=== PATIENT | female | born 1985 | race Caucasian/White ===

== ENCOUNTER 2016-11-14 17:42 | Emergency (ER) | payer BC ==
[~2016-11-14] VITALS: Ht 152.4 cm; Wt 50.0 kg
[2016-11-14 17:46] VITALS: Ht 152.4 cm; Wt 50.0 kg
[2016-11-14] MEDS ORDERED: LIDOCAINE/MYLANTA 40 ML BTL PO ONE (19:30)
[2016-11-14] MEDS ORDERED: FAMOTIDINE 20 MG TAB PO ONE (19:30)
--- NOTE | 2016-11-14 19:31 | ERD ---
ER Documentation Chief Complaint Date/Time DATE: 11/14/16 TIME: 19:22 Chief Complaint CWP X 1 WEEK HPI Patient is a 31-year-old female who presents to the ED with chest wall pain for 1 week and burning sensation in her left chest for 3 days. She states that she does have a history of anxiety and states that she has developed this chest wall pain in the past and associated with her anxiety. She states that the pain came on suddenly 1 week ago when she was sitting watching TV. She states that the pain is constant and is not alleviated with certain activity. Denies exertional pain. She states that it is not exacerbated with activity. She says the pain is on her left chest and does not radiate. She denies nausea, vomiting , diarrhea, abdominal pain. Denies leg pain or swelling. Denies chest pain, shortness of breath or difficulty breathing. Denies headache or dizziness, neck pain or stiffness. She states that she does have a lot of burping and has had acid reflux in the past. Denies a history of cardiac conditions in her family. Denies sudden cardiac in family. ROS All systems reviewed and are negative except as per history of present illness. Medications Home Meds Active Scripts Naproxen* (Naprosyn*) 500 Mg Tablet, 500 MG PO BID Y for PAIN AND/OR INFLAMMATION, #30 TAB Prov:LV VALENCIA PA-C 11/14/16 Allergies Allergies: Coded Allergies: No Known Allergy (Unverified , 11/30/13) PMhx/Soc History of Surgery: No Anesthesia Reaction: No Hx Neurological Disorder: No Hx Respiratory Disorders: No Hx Cardiac Disorders: No Hx Psychiatric Problems: No Hx Miscellaneous Medical Probl: No Hx Alcohol Use: No Hx Substance Use: No Hx Tobacco Use: No Smoking Status: Never smoker Physical Exam Vitals Vital Signs Date Time Temp Pulse Resp B/P Pulse Ox O2 Delivery O2 Flow Rate FiO2 11/14/16 17:46 98.1 78 20 119/73 99 Physical Exam GENERAL: Well-developed, well-nourished female. Appears in no acute distress. HEAD: Normocephalic, atraumatic. EYES: Pupils are equally reactive bilaterally. EOMs grossly intact. No conjunctival erythema. ENT: Moist mucous membranes. No uvula deviation. No kissing tonsils. No exudates. Bilateral TMs are not erythematous or bulging. NECK: Supple. No lymphadenopathy or thyromegaly. No meningismus. negative kernig. negative brudinski. LUNG: Clear to auscultation bilaterally. No rhonchi, wheezing, rales or coarse breath sounds. Slight tenderness to her left anterior chest. HEART: Regular rate and rhythm. No murmurs, rubs or gallops. ABDOMEN: No scars, ecchymosis or rashes noted. Soft, nontender, and nondistended. Positive bowel sounds in all four quadrants. No rebound tenderness , no guarding. (-) McBurneys point tenderness. No CVA tenderness. BACK: No midline tenderness. SKIN: Normal color. Warm and dry. No rashes or lesions. Capillary refill < 2 seconds Results 24 hrs Laboratory Tests Test 11/14/16 20:15 Bedside Urine pH (LAB) 8.5 Bedside Urine Protein (LAB) Negative Bedside Urine Glucose (UA) Negative Bedside Urine Ketones (LAB) Negative Bedside Urine Blood Trace-intact Bedside Urine Nitrite (LAB) Negative Bedside Urine Leukocyte Esterase (L Negative Current Medications Medications (Trade) Dose Ordered Sig/Yemi Route PRN Reason Start Time Stop Time Status Last Admin Dose Admin Miscellaneous Medication (Gi Cocktail (2)) 40 ml ONCE ONCE PO 11/14/16 19:30 11/14/16 19:31 DC 11/14/16 19:35 Famotidine (Pepcid) 20 mg ONCE ONCE PO 11/14/16 19:30 11/14/16 19:31 DC 11/14/16 19:35 Procedures/MDM ER COURSE: I kept the patient and/or family informed of laboratory and diagnostic imaging results throughout the emergency room course. IMAGING STUDIES [place] [id number] Radiology Main Line: [phone] DIAGNOSTIC IMAGING REPORT Patient: KENIA RAJPUT : 1985 Age: 31 Sex: F MR #: [id number] DOS: 11/14/161817 Ordering MD: LV VALENCIA PA-C Location: [facility] Room/Bed: PROCEDURE: CR, chest CLINICAL INDICATION: Chest pain. TECHNIQUE: AP chest. COMPARISON: None available. FINDINGS: The heart is not enlarged. There is no acute infiltrate in the lungs. No pleural effusion. IMPRESSION: 1. Unremarkable chest x-ray. RPTAT: GG .Jason Goldstein MD, Date Time Electronically viewed and signed by .Jason Goldstein MD, on 11/14/2016 19:34 .Y/ CC: LV VALENCIA PA-C EKG performed, read by Dr Oliveira 68 bpm, normal sinus rhythm, normal axis, no acute ST segment changes, no T wave inversion MEDICATIONS GI cocktail. Tolerated well and seen improvement in symptoms. Negative test. MEDICAL DECISION MAKING: This is a 31-year-old female who presents with chest wall pain and chest pressure 1 week. Vital signs were reviewed. Patient is afebrile. Patient is not hypoxic. Patient is not toxic or ill-appearing. Patient likely has chest wall pain of muscle origin. Xray as read by radiologist is unremarkable. Patient 's pain is reproducible upon palpation during examination. Low suspicion for ACS, PE, AAA, dissection, DVT. Patient's heart score is 0 and low suspicion for any cardiac emergency. I consulted with Dr. Wilson regarding this patient who agrees with plan and patient is stable for outpatient therapy. No further laboratory studies is necessary today. DISCHARGE: At this time, patient is stable for discharge and outpatient management with no new complaints during the ER course. Patient was sent home with Josy and copy of her results. Patient will be discharged home with instructions to recheck for new or worsening symptoms such as fever, nausea, weakness, LOC and to follow up with primary care in the next 1-2 days. Patient was advised to return to the ER for any new or worsening symptoms. Plan was discussed and patient and/or family understands and agrees. Home instructions were given. Departure Diagnosis: Primary Impression: Chest wall pain Condition: Stable LV VALENCIA PA-C Nov 14, 2016 19:31
--- NOTE | 2016-11-14 19:34 | RADRPT ---
PROCEDURE: CR, chest CLINICAL INDICATION: Chest pain. TECHNIQUE: AP chest. COMPARISON: None available. FINDINGS: The heart is not enlarged. There is no acute infiltrate in the lungs. No pleural effusion. IMPRESSION: 1. Unremarkable chest x-ray. RPTAT: GG .Jason Goldstein MD, Date Time Electronically viewed and signed by .Jason Goldstein MD, MD on 11/14/2016 19:34 .Y/
[2016-11-14] MEDS ORDERED: NAPR-260 PO (19:54)
[2016-11-14 20:16] LABS: URINE BLOOD (Dip) POC Trace-intact (NEGATIVE)
== END 2016-11-14 20:30 | disposition home or self-care (01) ==
LOC: FTE 17:42
DX: R07.89 Other chest pain (principal)
CPT/HCPCS: 71010; 81003; 93005; Z7610

== ENCOUNTER 2017-09-10 08:46 | Inpatient (IN) | END 2017-09-12 16:16 | disposition home or self-care (01) | DRG 342 ==

== ENCOUNTER 2018-05-12 16:09 | Emergency (ER) | END 2018-05-12 21:41 | disposition home or self-care (01) ==

== ENCOUNTER 2018-06-04 07:37 | Emergency (ER) | END 2018-06-04 10:39 | disposition home or self-care (01) ==

== ENCOUNTER 2018-09-10 14:12 | Outpatient (CLI) | payer BC ==
[~2018-09-10] VITALS: Ht 149.9 cm; Wt 52.5 kg
[~2018-09-10 14:12] MED LIST: ACET500C5 PO; AMOX1TAB10 PO; CEPH-443 PO; HYDR-3601 PO; IBUP-1542 PO; PREN-93 PO
[2018-09-10 14:42] VITALS: BP 98/57; PULSE 80; RESP 18; Ht 149.9 cm; Wt 52.5 kg
--- NOTE | 2018-09-10 16:42 | TRIAGE ---
OB Triage Datetime Report Generated by CPN: 09/10/2018 16:41 Datetime: 09/10/2018 15:05 Stage of : OB Triage Maternal Assessment Level of Consciousness: Fully Conscious Labor Evaluation Frequency: NONE Monitor Mode: External Resting Tone [place]: Relaxed Heart Rate FHR Baseline Rate: 145 Monitor Mode: External US Variability: Moderate 6-25 bpm Accelerations: AGA Decelerations: AGA Category: AGA Pain Assessment Pain Scale: 4 Pain Presence: Constant Pain Type: Ache Pain Location: Back Pain Goal: 3 Vaginal Exam Membrane Status: Intact Vaginal Bleeding: None Datetime: 09/10/2018 14:39 Assessment Type: Triage Maternal Assessment Level of Consciousness: Fully Conscious DTR's/Clonus: DTRs 2+; No Clonus Headache: Denies Blurred Vision: No Respiratory Effort: Unlabored; Regular Rhythm; Equal Expansion Breath Sounds, Left: Clear and Equal Breath Sounds, Right: Clear and Equal Nausea/Vomiting: Denies RUQ Epigastric Pain: Denies Lower Extremities Edema: None Degree: None Upper Extremities Edema: None Degree: None Facial Edema: None Fall Risk Assessment History of Falling: (0) No Secondary Diagnosis: (0) No Ambulatory Aid: (0) Bedrest/Nurse Assist IV Therapy: (0) No Gait: (0) Normal/Bedrest/Immobile Mental Status: (0) Oriented to Own Ability Fall Score: 0 Fall Risk Score Definition: No Risk: No action required Datetime: 09/10/2018 14:38 Time of Arrival: 09/10/2018 14:06 EGA: 20.0 Arrived By: Ambulatory Arrived From: Home Chief Complaint: PT. HERE C/O LOWER BACK PAIN Movement: Present Contractions: Denies/Absent Rupture of Membranes: Denies Vaginal Bleeding: None Vaginal Discharge: Denies Recent Sexual Intercouse: Denies Abdominal Trauma: Not Applicable Patient Complaints: Back Pain Time Provider Notified: 09/10/2018 14:57 Provider Notified: NELDA Initial Plan: EFM/CVL/UA Datetime: 09/10/2018 14:34 Monitor Mode: External Monitor Mode: External US
--- NOTE | 2018-09-10 18:15 | PN ---
Triage Information Date/Time Reason for visit: Low back pain Weeks of Gestation 20 weeks /Para Diabetes: none Hypertention: none Objective Vital Signs Date Temp Pulse Resp B/P (MAP) Pulse Ox O2 O2 Flow FiO2 Time Delivery Rate 09/10/18 99.0 80 18 98/57 (71) Room Air 14:42 Heart Rate: 140's Contractions: None Results/Medications Results 24 hrs Laboratory Tests Test 09/10/18 14:30 Urine Color STRAW Urine Clarity CLEAR Urine pH 7.0 Urine Specific [place] 1.006 Urine Ketones NEGATIVE Urine Nitrite NEGATIVE Urine Bilirubin NEGATIVE Urine Urobilinogen NEGATIVE Urine Leukocyte Esterase TRACE A Urine Microscopic RBC 0 Urine Microscopic WBC 0 Urine Hemoglobin NEGATIVE Urine Glucose NEGATIVE Urine Total Protein NEGATIVE Imaging Results FINDINGS: The cervix is closed with a length of 3.9 cm. There is a single live intrauterine gestation. Cardiac activity is present with 122 beats per minute. There is a vertex presentation. The placenta is posterior. There is no evidence for an abruption or placenta previa. RPTAT: AA IMPRESSION: Cervix length measures 3.9 cm. .Harvinder Nazario MD, MD Date Time Electronically viewed and signed by .Harvinder Nazario MD, MD on 09/10/2018 15:55 Disposition: Discharge Assessment/Plan 33-year-old with a single intrauterine at 20 weeks with SANYA of 01/28/2019 complaining of low back pain. Her exam was unremarkable. heart rate 140 bpm. She has no uterine contractions. Urinalysis within normal limits. Ultrasound performed there with normal cervical length as retained above. Patient reassured and discharged home in stable condition with follow-up with her primary OB in 3-4 days. Sign and symptom of labor, preeclampsia discussed with patient in detail. She expressed understanding. All of her questions answered. MANUEL KIM Sep 10, 2018 18:15
== END 2018-09-10 16:45 | disposition home or self-care (01) ==
LOC: L-D 14:12 → OBT 14:12
PROVIDERS: ATTEND Obstetrics & Gynecology
DX: O26.892 Other specified pregnancy related conditions, second trimester (principal); Z3A.20 20 weeks gestation of pregnancy; M54.5 Low back pain
CPT/HCPCS: 76817; 81001; Z7500; G0463